=== PATIENT | female | born 1990 | race Caucasian/White ===

== ENCOUNTER 2019-07-03 00:15 | Emergency (ER) | payer OTHER ==
[~2019-07-03] VITALS: Ht 172.7 cm; Wt 98.4 kg
[2019-07-03] MEDS ORDERED: DULOXETINE HCL20 MG PO (00:49)
[2019-07-03] MEDS ORDERED: XANAX 0.25 MG0.25 MG (00:50)
[2019-07-03] MEDS ORDERED: LEXAPRO 10 MG T10 M2 (00:50)
[2019-07-03] MEDS ORDERED: ADDERALL 10 MG10 MG (00:51)
[2019-07-03] MEDS ORDERED: PROMS25 WY (00:51)
[2019-07-03] MEDS ORDERED: NEURONTIN250 MG/5 M (00:52)
[2019-07-03] MEDS ORDERED: ZANAFLEX4 MG PO (00:52)
[2019-07-03] MEDS ORDERED: BIRTH CONTROL (00:53)
[2019-07-03] MEDS ORDERED: SUBOXONE 12 MG1 EACH (00:53)
[2019-07-03 00:56] LABS: HEMATOCRIT 40.3 % (37.0-47.0); HEMOGLOBIN 13.7 gm/dL (12.0-15.0); MCH 31.5 pg (26.0-34.0); MCHC 33.9 g/dL (28.0-37.0); MPV 7.6 fl. (7.2-11.1); RBC 4.34 mil/uL (4.20-5.00); RDW-CV 12.9 % (10.5-14.5); WBC 7.7 thou/uL (4.0-11.0)
[2019-07-03 01:03] LABS: CALCIUM 9.1 mg/dL (8.5-10.1); CREATININE 0.9 mg/dL (0.6-1.3); POTASSIUM 3.6 mmol/L (3.5-5.1)
[2019-07-03 01:08] LABS: ALBUMIN 3.7 g/dL (3.4-5.0); TOTAL BILIRUBIN 0.7 mg/dL (<0.1-1.0)
[2019-07-03 01:09] LABS: SALICYLATE 2.7 mg/dL (2.8-20.0)
[2019-07-03 01:10] LABS: ACETAMINOPHEN < 2 ug/mL (10-30); ALCOHOL < 10 mg/dL (<10)
[2019-07-03 02:42] LABS: AMP/METHAMP POSITIVE (Negative); BARBITURATES Negative (Negative); BENZODIAZEPINES POSITIVE (Negative); COCAINE Negative (Negative); METHADONE Negative (Negative); OPIATES Negative (Negative); PCP Negative (Negative); THC Negative (Negative)
[2019-07-03 02:44] LABS: URINE CLARITY CLEAR; URINE COLOR DARK YELLOW
[2019-07-03 02:46] LABS: URINE SPECIFIC GRAVITY 1.025 (1.005-1.030)
[2019-07-03 02:47] LABS: ICTOTEST (BILI CONFIRMATORY) Positive (Negative); URINE BILIRUBIN 1+ (Negative); URINE BLOOD NEGATIVE (Negative); URINE GLUCOSE-RANDOM NEGATIVE (Negative); URINE KETONES 1+ (Negative); URINE PROTEIN 1+ (Negative)
[2019-07-03 02:48] LABS: URINE LEUKOCYTES NEGATIVE (Negative); URINE NITRITE NEGATIVE (Negative)
[2019-07-03 05:20] VITALS: BP 143/78
== END 2019-07-03 05:20 | disposition home or self-care (01) ==
LOC: M.ERS 00:15
PROVIDERS: Personal Emergency Response Attendant
DX: Z86.59 Personal history of other mental and behavioral disorders (principal); F32.9 Major depressive disorder, single episode, unspecified; F41.0 Panic disorder [episodic paroxysmal anxiety]; M19.90 Unspecified osteoarthritis, unspecified site; M79.7 Fibromyalgia; F98.8 Other specified behavioral and emotional disorders with onset usually occurring in childhood and adolescence; Z90.49 Acquired absence of other specified parts of digestive tract; Z88.4 Allergy status to anesthetic agent